=== PATIENT | female | born 1940 | race Caucasian/White ===

== ENCOUNTER 2020-06-18 15:55 | Emergency (ER) | payer MEDICARE, OTHER ==
[~2020-06-18 15:55] MED LIST: ACETAMINOPHEN500 M1 PO; ASPIRIN CHEWABL81 MG PO; ATENOLOL25 MG PO; BACITRACIN15 GM TOP; CERTAGEN1 EACH PO; COUMADIN5 MG PO; COUMADIN7.5 MG PO; COZAAR50 MG PO; LOVAZA1 GM PO; MAG-OXIDE 400M400 MG PO; NORCO 5-325 TA1 EACH PO; OS-CAL500 MG PO; PRAVACHOL20 MG PO; PRILOSEC20 MG PO; PROTONIX 40MG T40 MG PO; VITAMIN D400 UNI2 PO; ZOFRAN4 MG PO; ZOVIRAX200 MG PO
[2020-06-18 16:20] LABS: BASOPHIL 0.1 % (0-2); EOSINOPHIL 0.1 % (0-7); HCT 45.2 % (37.0-47.0); HGB 15.7 g/dl (12.5-16.0); LYMPHOCYTE 13.5 % (15-48); MCH 31.1 pg (25.0-31.0); MCHC 34.7 g/dL (32.0-36.0); MCV 89.5 fL (78.0-100.0); MONOCYTE 9.8 % (0-12); MPV 10.2 fL (6.0-9.5); NEUTROPHIL 76.3 % (41-80); NRBC 0; PLT 181 K/uL (150-400); RBC 5.05 M/uL (4.20-5.40); RDW 12.8 % (11.5-14.0); WBC 9.9 K/uL (4.0-10.5)
[2020-06-18 16:36] LABS: INR 1.08 (0.9-1.2); PROTHROMBIN TIME 13.3 SECONDS (11.4-13.6); PTT 26.6 SECONDS (22.2-34.7)
[2020-06-18 16:42] LABS: ALBUMIN 3.7 g/dL (3.4-5.0); BILIRUBIN - TOTAL 0.8 mg/dL (0.2-1.0); BUN/CREAT RATIO (CALC) 30.8 RATIO; CREATININE 0.65 mg/dL (0.51-0.95); GLOBULIN (CALCULATION) 3.7 g/dL; POTASSIUM 4.1 mmol/L (3.5-5.1); TOTAL PROTEIN 7.4 g/dL (6.4-8.2)
[2020-06-18 17:03] LABS: LACTIC ACID 1.5 mmol/L (0.4-1.9)
[2020-06-18 17:45] LABS: BILIRUBIN 1+ mg/dL (NEGATIVE); BLOOD NEGATIVE Ery/uL (NEGATIVE); CLARITY CLEAR (CLEAR); COLOR YELLOW (YELLOW); GLUCOSE (U) NORMAL (NORMAL); LEUKOCYTES NEGATIVE Leu/uL (NEGATIVE); NITRITE NEGATIVE (NEGATIVE); PROTEIN TRACE (LOW) mg/dL (NEGATIVE); SPECIFIC GRAVITY >=1.030 (1.001-1.030); UROBILINOGEN 0.2 mg/dL (0.2-1.0)
[2020-06-18 17:47] LABS: BACTERIA TRACE; MUCOUS MODERATE
== END 2020-06-18 20:10 | disposition other institution (70) ==
LOC: FER 15:55
PROVIDERS: Emergency Medicine
DX: I63.9 Cerebral infarction, unspecified (principal); G81.91 Hemiplegia, unspecified affecting right dominant side; R29.810 Facial weakness; I10 Essential (primary) hypertension; R29.709 NIHSS score 9; S80.212A Abrasion, left knee, initial encounter; Z86.711 Personal history of pulmonary embolism; Z85.43 Personal history of malignant neoplasm of ovary; Z88.0 Allergy status to penicillin; Z88.1 Allergy status to other antibiotic agents; X58.XXXA Exposure to other specified factors, initial encounter; Z20.822 Contact with and (suspected) exposure to COVID-19
CPT/HCPCS: 36415; 70450; 71045; 80053; 81001; 82550; 82553; 83605; 84484; 85025; 85610; 85730; 93005; J7030; U0002